=== PATIENT | female | born 1985 | race Hispanic/Latino ===

== ENCOUNTER 2019-02-10 12:06 | Emergency (ER) | payer OTHER ==
[~2019-02-10] VITALS: Ht 154.9 cm; Wt 117.6 kg
[2019-02-10 12:42] LABS: BASO % 0.3 % (0.0-1.0); EOS # 0.1 10^3/uL (0.0-0.50); EOS % 1.8 % (0.0-3.0); HEMATOCRIT 35.2 % (36.0-47.0); HEMOGLOBIN 11.5 g/dl (12.0-15.5); LYMPH # 1.9 10^3/uL (1.5-4.5); LYMPH % 31.9 % (24.0-44.0); MEAN CORPUSCULAR HEMOGLOBIN 27.6 pg (27.0-33.0); MEAN CORPUSCULAR HGB CONC 32.7 g/dl (32.0-36.5); MEAN CORPUSCULAR VOLUME 84.6 fl (80.0-96.0); MONO # 0.4 10^3/uL (0.0-0.8); MONO % 7.3 % (0.0-5.0); NEUTROPHILS # 3.5 10^3/uL (1.8-7.7); NEUTROPHILS % 58.5 % (36.0-66.0); PLATELET COUNT, AUTOMATED 209 10^3/uL (150-450); RED BLOOD COUNT 4.16 10^6/uL (4.00-5.40)
[2019-02-10 13:16] LABS: BLOOD UREA NITROGEN 7 MG/DL (7-18); CALCIUM LEVEL 9.1 MG/DL (8.5-10.1); CARBON DIOXIDE LEVEL 26 MEQ/L (21-32); CHLORIDE LEVEL 106 MEQ/L (98-107); CREATININE FOR GFR 0.63 MG/DL (0.55-1.30); GLOMERULAR FILTRATION RATE > 60.0 (>60); GLUCOSE, FASTING 88 MG/DL (70-100); POTASSIUM SERUM 3.9 MEQ/L (3.5-5.1); SODIUM LEVEL 141 MEQ/L (136-145)
[2019-02-10 15:44] LABS: HCG, SERUM QUANTITATIVE 1884 MIU/ML
--- NOTE | 2019-02-10 15:59 | REP ---
FIRST TRIMESTER ULTRASOUND: Real-time sonographic evaluation of the gravid uterus performed utilizing transabdominal and endovaginal technique. A regularly shaped gestational sac is seen within the endometrial canal containing a pole, with crown-rump length 3 mm corresponding to an estimated gestational age of 5 weeks 6 days. heart is 112 beats per minute. There is no subchorionic hemorrhage. No maternal adnexal regional abnormalities are seen. There is no evidence of ovarian torsion. Electronically Signed by Grey Rankin MD 02/11/2019 09:28 A
[2019-02-10 16:48] VITALS: BP 139/64
== END 2019-02-10 16:50 | disposition home or self-care (01) ==
LOC: M ED 12:06
DX: O26.851 Spotting complicating pregnancy, first trimester (principal); Z3A.01 Less than 8 weeks gestation of pregnancy; Z98.84 Bariatric surgery status

== ENCOUNTER 2019-02-15 21:31 | Emergency (ER) | payer OTHER ==
[~2019-02-15] VITALS: Ht 154.9 cm; Wt 111.4 kg
[2019-02-15 22:13] LABS: BASO % 0.4 % (0.0-1.0); EOS # 0.1 10^3/uL (0.0-0.50); EOS % 1.7 % (0.0-3.0); HEMATOCRIT 33.8 % (36.0-47.0); HEMOGLOBIN 11.3 g/dl (12.0-15.5); LYMPH # 2.7 10^3/uL (1.5-4.5); LYMPH % 33.6 % (24.0-44.0); MEAN CORPUSCULAR HEMOGLOBIN 28.6 pg (27.0-33.0); MEAN CORPUSCULAR HGB CONC 33.4 g/dl (32.0-36.5); MEAN CORPUSCULAR VOLUME 85.6 fl (80.0-96.0); MONO # 0.6 10^3/uL (0.0-0.8); MONO % 7.4 % (0.0-5.0); NEUTROPHILS # 4.6 10^3/uL (1.8-7.7); NEUTROPHILS % 56.5 % (36.0-66.0); PLATELET COUNT, AUTOMATED 234 10^3/uL (150-450); RED BLOOD COUNT 3.95 10^6/uL (4.00-5.40); WHITE BLOOD COUNT 8.2 10^3/uL (4.0-10.0)
[2019-02-15 22:51] LABS: BLOOD UREA NITROGEN 6 MG/DL (7-18); CALCIUM LEVEL 8.4 MG/DL (8.5-10.1); CARBON DIOXIDE LEVEL 27 MEQ/L (21-32); CHLORIDE LEVEL 109 MEQ/L (98-107); CREATININE FOR GFR 0.56 MG/DL (0.55-1.30); GLOMERULAR FILTRATION RATE > 60.0 (>60); GLUCOSE, FASTING 68 MG/DL (70-100); POTASSIUM SERUM 4.2 MEQ/L (3.5-5.1); SODIUM LEVEL 141 MEQ/L (136-145)
[2019-02-15 23:26] LABS: HCG, SERUM QUANTITATIVE 1114 MIU/ML
--- NOTE | 2019-02-16 01:21 | REPVR ---
EXAM: US Duplex Artery and Vein of the Abdominal and/or Reproductive Organs, Complete EXAM DATE/TIME: 02/16/2019 12:06 AM CLINICAL HISTORY: 33 years old, female; Signs and symptoms; Lmp or gestational age (in weeks): 6wk5d; Other: Vaginal bleeding; ; Additional info: Pelvic pain/bleeding; Lmp- 12/22/18 TECHNIQUE: Imaging protocol: Real-time duplex ultrasound scan of the arterial and venous flow of the abdominal and/or reproductive organs with B-mode, color Doppler flow and spectral waveform analysis. Complete exam. COMPARISON: No relevant prior studies available. FINDINGS: Right ovary: Normal waveforms. Left ovary: Normal waveforms. IMPRESSION: No evidence of ovarian torsion. EXAM: US First Trimester, Transabdominal and US , Transvaginal EXAM DATE/TIME: 02/16/2019 12:06 AM CLINICAL HISTORY: 33 years old, female; Signs and symptoms; Lmp or gestational age (in weeks): 6wk5d; Other: Vaginal bleeding; ; Additional info: Pelvic pain/bleeding; Lmp- 12/22/18 TECHNIQUE: Imaging protocol: Real-time transabdominal obstetrical ultrasound of the maternal pelvis and a first trimester , less than 14 weeks 0 days, with image documentation. Transvaginal imaging was used for better evaluation of the fetus and adnexa. COMPARISON: No relevant prior studies available. FINDINGS: GESTATION: Gestation: No intra-or extrauterine gestation. MATERNAL: Uterus: Uterus measures 10 x 4.5 x 5.6 cm. Endometrial stripe is 1.1 cm. Echogenic avascular debris is present along the canal. Cervix: Unremarkable. Right adnexa: Right ovary measures 3 x 2.8 x 2.5 cm. Left adnexa: Left ovary measures 2.2 x 1.8 x 2.2 cm. Intraperitoneal: No intraperitoneal free fluid. IMPRESSION: No intra-or extrauterine gestation. Recommend continued beta hCG followup and repeat ultrasound in 1-2 weeks. Electronically signed by: Dario Butt On 02/16/2019 01:20:55 AM
[2019-02-16] MEDS ORDERED: METAL LOCK LOOP XX ONE (01:46)
[2019-02-16 02:03] VITALS: BP 130/69
== END 2019-02-16 02:03 | disposition home or self-care (01) ==
LOC: M ED 21:31
DX: O03.4 Incomplete spontaneous abortion without complication (principal); O99.840 Bariatric surgery status complicating pregnancy, unspecified trimester